=== PATIENT | female | born 2000 | race Caucasian/White ===

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

== ENCOUNTER → 2024-04-16 | Outpatient (CLI) | payer BC ==
[2024-04-16 14:50] VITALS: BP 138/86; PULSE 65; RESP 14; TEMP 98.1
--- NOTE | 2024-04-16 15:31 | P.SLEEP ---
History of Present Illness DATE: 04/16/2024 CONSULTATION/NEW PATIENT EVALUATION HISTORY OF PRESENT ILLNESS/SLEEP-WAKE EVALUATION: 23-year-old girl had been evaluated in the sleep center for possible obstructive sleep apnea hypopnea syndrome. SLEEP SCHEDULE: Usually sleep schedule from 3 PM to 10 PM on working days and from 4 PM to 1 AM on days off. 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 FALLING ASLEEP: Patient does have difficulties with falling asleep. DURING SLEEP: Positive history of awakenings from sleep with episodes of gasping for air and choking no history of hypnogogical hallucinations, sleep paralysis, or cataplexy. DURING THE DAY/WAKE STATE: In the morning patient wake up tired, has difficulties to pay attention, falling asleep during the day. Positive history of problems with memory, concentration, irritability, depression and anxiety. [place] sleepiness scale is 10. Patient may take 1-2 naps at 10 AM to noon. PAST MEDICAL HISTORY: Anxiety, asthma. PAST SURGICAL HISTORY: None. MEDICATIONS: Alprazolam 1.25 mg as needed. SOCIAL HISTORY: Please see below. FAMILY HISTORY: Heart problems, sleep apnea. REVIEW OF SYSTEMS: Awakenings from sleep with gasping for air. No fevers. No double vision. No recent chest pain. No shortness of breath. No abdominal pain. No bleeding episodes. No blood in urine. No seizure episodes. PHYSICAL EXAMINATION: GENERAL: A pleasant patient without any distress. VITAL SIGNS: Please see below. HEENT: PERRLA, EOMI. Evaluation of oropharynx showed tongue protrudes midline, low position of soft palate Mallampati 4, retrognathia 1-2 mm. NECK: Supple. No JVD. Thyroid is not palpable. 12-1/3 inches in circumference. LUNGS: Clear to percussion and to auscultation. Good air exchange. No wheezing or rhonchi. HEART: S1, S2 regular. No murmurs, gallops or rubs. ABDOMEN: Soft and nontender. Bowel sounds are present. No organomegaly appreciated. EXTREMITIES: No clubbing or cyanosis. 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 Cranial nerves 2 to 7 intact. There is no fasciculation or atrophy noted. No focal deficits observed. ASSESSMENT: 1. Awakenings from sleep with gasping for air. Extremely low position of soft palate Mallampati 4. Sleepiness with [place] Sleepiness Scale 10. Possible obstructive sleep apnea hypopnea syndrome. 2. 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 4. Hypertension in the office. 5 history of asthma. PLAN: 1. Home sleep apnea test for evaluation of patient's breathing during sleep. 2. Following plan after reading sleep study. 3. Preferable position during sleep on the side. 4. No driving if patient feels any sleepiness. Patient is aware of civil and criminal liability for unsafe driving. 5. Sleep hygiene with regular sleep time for at least 7.5-8 hours. 6. Watching weight. Thank you very much for referring this patient for consultation. Sincerely, Rachid Yan MD, PhD, FAASM. Diplomat of [place] Board of Sleep Medicine, Sleep Medicine Board by [place] [employer] of Medical Specialities [place] [employer] of Internal Medicine [facility] [facility] [place] cc: Leoncio Patel DO Past Medical History Past Medical History: Asthma Additional Past Medical History / Comment(s): Depression/anxiety and panic attack disorder History of Any Multi-Drug Resistant Organisms: None Reported Additional Past Surgical History / Comment(s): [place] teeth removed Past Psychological History: Anxiety, Depression, Panic Disorder Smoking Status: Vaper Past Alcohol Use History: Occasional Past Drug Use History: Marijuana - Past Family History Father Family Medical History: Sleep Apnea/CPAP/BIPAP Additional Family Medical History / Comment(s): SNORING, DEPRESSION/ANXIETY (MOM, BROTHER, SISTER ALSO HAVE DEPRESSION/ANXIETY) Medications and Allergies Home Medications Medication Instructions Recorded Confirmed Type ALPRAZolam [Xanax] 0.25 mg PO DIRECTED PRN MDD 0.25 04/16/24 04/16/24 History Physical Exam Vitals: Vital Signs Temp Pulse Resp BP Pulse Ox 04/16/24 14:49 98.1 F 65 14 138/86 100 Intake and Output 04/16/24 04/16/24 04/16/24 06:59 14:59 22:59 Other: Weight 63.049 kg Sleep Note - Sleep Data ESS Total: 9 - Sleep Note Sleep Note: Temperature: 98.1 F Pulse Rate: 65 Respiratory Rate: 14 Blood Pressure: 138/86 SpO2: 100 Height: 5 ft 3.1 in Weight: 63.049 kg BMI: Neck Circumference: 12.3
== END ==
LOC: 3 N SLEEP 14:28
PROVIDERS: ATTEND Internal Medicine
CPT/HCPCS: 99202

== ENCOUNTER → 2024-05-15 | Outpatient (CLI) | payer BC ==
--- NOTE | 2024-05-20 12:40 | P.PCN ---
Description of Procedure: CLINICAL: A home sleep apnea test has been done for confirmation of possible obstructive sleep apnea-hypopnea syndrome. DESCRIPTION OF PROCEDURE: RESULTS: Recording time was 8 hours 46 minutes. Evaluation time was 4 hours 15 minutes. Evaluation time is sufficient for making conclusion about results of the test. Raw data of sleep recording has been reviewed and is adequate. Respiratory channel showed 25 apneas and 5 hypopneas. Apnea-hypopnea index was 7.0 per hour. Pulse rate in the range between minimum 40, maximum 108, average 51 by computer calculation. Lowest desaturation was 80%. IMPRESSION: 1. Obstructive Sleep Apnea Hypopnea Syndrome. Patient presents with symptoms of excessive daytime sleepiness with [place] Sleepiness Scale 10. 2. History of anxiety Please see other impressions from consultation. PLAN: 1. The patient will be started on auto-PAP treatmentfor correction of respiratory abnormallities during sleep. 2. I will see patient for follow up visit to discuss results of the test, evaluate clinical response on treatment with PAP therapy and make any necessary adjustments related to mask fitting, pressure, and humidification. 3. Sleep hygiene with regular time in bed for at least 8 hours. 4. No driving if feeling any sleepiness. Thank you very much for allowing me to participate in the management of your patient. Sincerely, Rachid Yan MD, PhD, FAASM Diplomat of [place] [employer] Sleep Medicine Board of [place] [employer] of Internal Medicine [facility] [place] cc: Leoncio Patel DO
== END ==
LOC: 3 N SLEEP 10:30
PROVIDERS: ATTEND Internal Medicine
DX: G47.33 Obstructive sleep apnea (adult) (pediatric) (principal); G47.10 Hypersomnia, unspecified; F41.9 Anxiety disorder, unspecified

== ENCOUNTER → 2024-10-07 | Outpatient (CLI) | payer BC ==
[2024-10-07 10:59] VITALS: BP 142/91; PULSE 68; RESP 16; TEMP 98.3
--- NOTE | 2024-10-07 11:19 | P.PROGSL ---
Subjective DATE: 03/20/2025 FOLLOW UP VISIT. Patient with obstructive sleep apnea hypopnea syndrome return to sleep center for follow-up visit. Recently patient had sleep study which documented obstructive sleep apnea hypopnea syndrome. Patient was initiated on PAP therapy and today is first visit after treatment was started. Patient was able to use PAP equipment every night for the whole night. 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 The patient does not have significant problems with the mask, PAP pressure and humidification. [place] sleepiness scale is 7, which showed improvement, during the consultation it was 10. I checked information from PAP unit. PAP unit pressure 5-11, average 7.3 cm H2O. Usage is 80% for more then 4 hours, average 5 hours per night. Leak is 4l/m, which is in acceptable range. Apnea Hypopnea Index is 2.8, which is normal. MEDICATIONS: Alprazolam 0.25 mg as needed. During physical exam: GENERAL: A pleasant patient without any distress. VITAL SIGNS: Please see below. BP 142/91 HEENT: PERRLA, EOMI.low position of soft palate, Mallapati[] . NECK: Supple. No JVD. LUNGS: Clear to percussion and to auscultation. Good air exchange. No wheezing or rhonchi. HEART: S1, S2 regular. ABDOMEN: Soft and nontender.[] EXTREMITIES: No clubbing or cyanosis. 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 No focal deficit. Impressions: 1. Obstructive sleep apnea-hypopnea syndrome. Patient demonstrated good compliance with treatment, benefiting from treatment. 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 3. History of anxiety. 4. Hypertension in the office. 5. History of asthma. Plan: 1. Continue using PAP equipment every night for the whole night. 2. To change air filter at least 1-2 times per month. 3. PAP unit should stay lower then position of the head. 4. Advised patient to remove all remaining water from humidifier canister daily and make it dry after each usage. Refill canister with fresh distilled water before each usage. 5. Sleep hygiene with regular time in bed for at least 8 hours. 6. Precautions related to driving. No driving if feel any sleepiness. 7. I will maintain prescription for PAP supplies including mask, tube, filters. 8. Follow up visit in 8 months or earlier if patient has any problems. 9. Watching weight. Thank you very much for allowing me to participate in the management of your patient. Rachid Yan MD, PhD, FAASM. Diplomat of [place] [employer], Sleep Medicine Board by [place] [employer] Linen Check[facility] [place] Objective - Vital Signs Vital Signs: Vital Signs Temp 98.3 F 10/07/24 10:58 Pulse 68 10/07/24 10:58 Resp 16 10/07/24 10:58 BP 142/91 10/07/24 10:58 Pulse Ox 98 10/07/24 10:58 FiO2 Home Medications: Home Medications Medication Instructions Recorded Confirmed Type ALPRAZolam [Xanax] 0.25 mg PO DIRECTED PRN MDD 0.25 04/16/24 04/16/24 History
== END ==
LOC: 3 N SLEEP 10:41
PROVIDERS: ATTEND Internal Medicine
DX: G47.33 Obstructive sleep apnea (adult) (pediatric) (principal); F41.9 Anxiety disorder, unspecified; I10 Essential (primary) hypertension; J45.909 Unspecified asthma, uncomplicated
CPT/HCPCS: 99212